=== PATIENT | male | born 1970 | race Two or more races ===

== ENCOUNTER 2018-01-25 18:41 | Emergency (ER) | payer OTHER ==
[~2018-01-25] VITALS: Ht 180.3 cm; Wt 117.9 kg
[2018-01-25 18:45] VITALS: BP 146/92
[2018-01-25] MEDS ORDERED: KETOROLAC TROMETH 60MG/2ML VIAL IM ONE (19:00)
[2018-01-25] MEDS ORDERED: traMADol HCL 50 MG TAB PO ONE (20:00)
== END 2018-01-25 20:26 | disposition home or self-care (01) ==
LOC: EEVIPCON 18:41 → ER 18:41
DX: S96.911A Strain of unspecified muscle and tendon at ankle and foot level, right foot, initial encounter (principal); K21.9 Gastro-esophageal reflux disease without esophagitis; Z90.49 Acquired absence of other specified parts of digestive tract; X50.1XXA Overexertion from prolonged static or awkward postures, initial encounter; Y93.79 Activity, other specified sports and athletics; Y92.148 Other place in prison as the place of occurrence of the external cause; Y99.8 Other external cause status
CPT/HCPCS: 29515; 73610; 96372; 99284; J1885